=== PATIENT | male | born 1990 | race Caucasian/White ===

== ENCOUNTER 2019-07-25 15:25 | Emergency (ER) | payer OTHER ==
[~2019-07-25] VITALS: Ht 172.7 cm; Wt 81.6 kg
[2019-07-25] MEDS ORDERED: IV NORMAL SALINE 1000ML BAG 1,000 ML IV ONE (16:15)
--- NOTE | 2019-07-25 16:36 | RAD ---
Examination: PORTABLE CHEST 1V History: Syncope Comparison/Correlation: None Findings: Upright portable frontal view chest was obtained. Heart size and pulmonary vasculature are normal. Minimal retrocardiac left basilar linear atelectasis, scarring or possibly infiltrate noted. No pleural effusion suspected. No pneumothorax. Bony structures are unremarkable. Impression: Minimal retrocardiac left basilar atelectasis, scarring or possibly infiltrate. Electronically signed by: Marco Pace MD (07/25/2019 4:33 PM) [facility]
[2019-07-25] MEDS ORDERED: ACETAMINOPHEN 500 MG TABLET PO ONE (17:15)
[2019-07-25 17:16] LABS: BILIRUBIN,URINE NEGATIVE (NEG); CLARITY,URINE CLEAR; COLOR,URINE YELLOW; NITRITE,URINE NEGATIVE (NEG); PH,URINE 6.5; PROTEIN,URINE NEGATIVE (NEG-TRACE)
[2019-07-25 17:22] LABS: SQUAMOUS EPITHELIAL CELL,UR OCC /LPF
[2019-07-25 17:24] LABS: BACTERIA,URINE 0 /HPF (0-FEW)
[2019-07-25 17:29] LABS: BASO % 0 % (0-3); EOS # 0.2 x10^3/uL (0.0-0.7); EOS % 1 % (0-3); HEMATOCRIT 44.2 % (39.0-53.0); HEMOGLOBIN 14.9 g/dL (13.0-17.5); LYMPH # 1.1 x10^3/uL (1.0-4.8); LYMPH % 9 % (24-48); MEAN CORPUSCULAR HEMOGLOBIN 29 pg (25-35); MEAN CORPUSCULAR HGB CONC 34 g/dL (31-37); MEAN CORPUSCULAR VOLUME 85 fL (79-100); MONO # 1.7 x10^3/uL (0.0-1.1); MONO % 13 % (0-9); NEUT # 9.6 x10^3/uL (1.8-7.7); NEUT % 76 % (31-73); PLATELET COUNT 272 x10^3/uL (140-400); RED CELL DISTRIBUTION WIDTH 12.8 % (11.5-14.5); WHITE BLOOD COUNT 12.6 x10^3/uL (4.0-11.0)
[2019-07-25 17:34] LABS: BARBITURATES NEG (NEG); BENZODIAZEPINES NEG (NEG); CANNABINOIDS NEG (NEG); COCAINE NEG (NEG); METHADONE NEG (NEG); OPIATES NEG (NEG); PHENCYCLIDINE NEG (NEG)
[2019-07-25 17:36] LABS: AMPHETAMINE/METHAMPHETAMINE NEG (NEG)
[2019-07-25 17:41] LABS: CREATININE 1.1 mg/dL (0.7-1.3); GFR 80.3; POTASSIUM 3.9 mmol/L (3.5-5.1)
[2019-07-25 17:47] LABS: ALBUMIN/GLOBULIN RATIO 0.9 (1.0-1.7); TOTAL BILIRUBIN 0.5 mg/dL (0.2-1.0); TOTAL PROTEIN 8.5 g/dL (6.4-8.2)
[2019-07-25 17:55] LABS: CREATINE KINASE 193 U/L (39-308)
[2019-07-25] MEDS ORDERED: cefTRIAXone IV Push 1 GM VIAL. IVP ONE (18:15)
[2019-07-25 18:50] VITALS: BP 131/71
[2019-07-25] MEDS ORDERED: AMOX875T PO (18:53)
--- NOTE | 2019-07-25 18:53 | PHYS DOC ---
Past Medical History Past Medical History: No Pertinent History (CARMELO DELGADO APRN) Past Surgical History: Appendectomy (CARMELO DELGADO APRN) Alcohol Use: None Drug Use: None (CARMELO DELGADO APRN) Attending Signature I have participated in the care of this patient and I have reviewed and agree with all pertinent clinical information above including history, exam, and recommendations. (SG DURAN MD) Adult General Chief Complaint Chief Complaint: SYNCOPE HPI HPI Patient is a 28 year old male who presents with be evaluated after having a syncope episode at urgent care. Patient states he had gone to urgent care to be seen for left hip pain. He states he somehow passed out at urgent care. Patient reports his had cough and nasal congestion for 4 days. Also complaining of body aches and chills. (CARMELO DELGADO APRN) Review of Systems Review of Systems Constitutional: Denies fever or chills [] Eyes: Denies change in visual acuity, redness, or eye pain [] HENT: Reports nasal congestion, denies sore throat [] Respiratory: Reports cough, denies shortness of breath Cardiovascular: No additional information not addressed in HPI [] GI: Denies abdominal pain, nausea, vomiting, bloody stools or diarrhea [] : Denies dysuria or hematuria [] Musculoskeletal: Denies back pain or joint pain [] Integument: Denies rash or skin lesions [] Neurologic: Reports syncope episode Denies headache, focal weakness or sensory changes [] All other systems were reviewed and found to be within normal limits, except as documented in this note. (CARMELO DELGADO APRN) Current Medications Current Medications Current Medications Medications (Trade) Dose Ordered Sig/Kamran Start Time Stop Time Status Last Admin Dose Admin Acetaminophen (Tylenol) 1,000 mg 1X ONCE 07/25/19 17:15 07/25/19 17:16 DC 07/25/19 17:26 1,000 MG Ceftriaxone Sodium (Rocephin) 1 gm 1X ONCE 07/25/19 18:15 07/25/19 18:16 DC 07/25/19 18:47 1 GM Sodium Chloride 1,000 ml @ 1,000 mls/hr 1X ONCE 07/25/19 16:15 07/25/19 17:14 DC 07/25/19 17:22 1,000 MLS/HR (SG DURAN MD) Allergies Allergies Allergies Coded Allergies Type Severity Reaction Last Updated Verified No Known Drug Allergies 07/25/19 No (SG DURAN MD) Physical Exam Physical Exam Constitutional: Well developed, well nourished, no acute distress, non-toxic appearance. [] HENT: Normocephalic, atraumatic, bilateral external ears normal, oropharynx moist, no oral exudates, nose normal. [] Left TM is moderately injected. No effusion Eyes: PERRLA, EOMI, conjunctiva normal, no discharge. [] Neck: Normal range of motion, no tenderness, supple, no stridor. [] Cardiovascular:Heart rate regular rhythm, no murmur [] Lungs & Thorax: Bilateral breath sounds clear to auscultation [] Abdomen: Bowel sounds normal, soft, no tenderness, no masses, no pulsatile masses. [] Skin: Warm, dry, no erythema, no rash. [] Back: No tenderness, no CVA tenderness. [] Extremities: No tenderness, no cyanosis, no clubbing, ROM intact, no edema. [] Neurologic: Alert and oriented X 3, normal motor function, normal sensory function, no focal deficits noted. Cranial nerves II through XII intact Psychologic: Affect normal, judgement normal, mood normal. [] (CARMELO DELGADO APRN) Current Patient Data Vital Signs Vital Signs Date Time Temp Pulse Resp B/P (MAP) Pulse Ox O2 Delivery O2 Flow Rate FiO2 07/25/19 18:50 94 131/71 (91) 96 Room Air 07/25/19 16:48 100.5 16 100.5 (SG DURAN MD) Lab Values Laboratory Tests Test 07/25/19 17:09 07/25/19 17:15 Urine Collection Type Unknown Urine Color Yellow Urine Clarity Clear Urine pH 6.5 Urine Specific Raymond >=1.030 Urine Protein Negative mg/dL (NEG-TRACE) Urine Glucose (UA) Negative mg/dL (NEG) Urine Ketones (Stick) Negative mg/dL (NEG) Urine Blood Negative (NEG) Urine Nitrite Negative (NEG) Urine Bilirubin Negative (NEG) Urine Urobilinogen Dipstick 1.0 mg/dL (0.2 mg/dL) Urine Leukocyte Esterase Negative (NEG) Urine RBC 1-2 /HPF (0-2) Urine WBC 1-4 /HPF (0-4) Urine Squamous Epithelial Cells Occ /LPF Urine Bacteria 0 /HPF (0-FEW) Urine Mucus Marked /LPF Urine Opiates Screen Neg (NEG) Urine Methadone Screen Neg (NEG) Urine Barbiturates Neg (NEG) Urine Phencyclidine Screen Neg (NEG) Urine Amphetamine/Methamphetamine Neg (NEG) Urine Benzodiazepines Screen Neg (NEG) Urine Cocaine Screen Neg (NEG) Urine Cannabinoids Screen Neg (NEG) Urine Ethyl Alcohol Neg (NEG) White Blood Count 12.6 x10^3/uL (4.0-11.0) H Red Blood Count 5.20 x10^6/uL (4.30-5.70) Hemoglobin 14.9 g/dL (13.0-17.5) Hematocrit 44.2 % (39.0-53.0) Mean Corpuscular Volume 85 fL (79-100) Mean Corpuscular Hemoglobin 29 pg (25-35) Mean Corpuscular Hemoglobin Concent 34 g/dL (31-37) Red Cell Distribution Width 12.8 % (11.5-14.5) Platelet Count 272 x10^3/uL (140-400) Neutrophils (%) (Auto) 76 % (31-73) H Lymphocytes (%) (Auto) 9 % (24-48) L Monocytes (%) (Auto) 13 % (0-9) H Eosinophils (%) (Auto) 1 % (0-3) Basophils (%) (Auto) 0 % (0-3) Neutrophils # (Auto) 9.6 x10^3/uL (1.8-7.7) H Lymphocytes # (Auto) 1.1 x10^3/uL (1.0-4.8) Monocytes # (Auto) 1.7 x10^3/uL (0.0-1.1) H Eosinophils # (Auto) 0.2 x10^3/uL (0.0-0.7) Basophils # (Auto) 0.0 x10^3/uL (0.0-0.2) Sodium Level 140 mmol/L (136-145) Potassium Level 3.9 mmol/L (3.5-5.1) Chloride Level 103 mmol/L (98-107) Carbon Dioxide Level 30 mmol/L (21-32) Anion Gap 7 (6-14) Blood Urea Nitrogen 13 mg/dL (8-26) Creatinine 1.1 mg/dL (0.7-1.3) Estimated GFR (Cockcroft-Gault) 80.3 BUN/Creatinine Ratio 12 (6-20) Glucose Level 95 mg/dL (70-99) Calcium Level 9.0 mg/dL (8.5-10.1) Magnesium Level 2.0 mg/dL (1.8-2.4) Total Bilirubin 0.5 mg/dL (0.2-1.0) Aspartate Amino Transferase (AST) 28 U/L (15-37) Alanine Aminotransferase (ALT) 40 U/L (16-63) Alkaline Phosphatase 92 U/L (46-116) Creatine Kinase 193 U/L (39-308) Creatine Kinase MB (Mass) < 0.5 ng/mL (0.0-3.6) Creatine Kinase MB Relative Index 0.3 % (0-4) Troponin I Quantitative < 0.017 ng/mL (0.000-0.055) IG-Pil-O-Type Natriuretic Peptide 39 pg/mL (0-124) Total Protein 8.5 g/dL (6.4-8.2) H Albumin 4.0 g/dL (3.4-5.0) Albumin/Globulin Ratio 0.9 (1.0-1.7) L Laboratory Tests 07/25/19 17:15 Laboratory Tests 07/25/19 17:15 (SG DURAN MD) EKG EKG [address] Frankel sinus rhythm HR 85 no STEMI[] (CARMELO DELGADO APRN) Radiology/Procedures Radiology/Procedures []PROCEDURE: PORTABLE CHEST 1V Examination: PORTABLE CHEST 1V History: Syncope Comparison/Correlation: None Findings: Upright portable frontal view chest was obtained. Heart size and pulmonary vasculature are normal. Minimal retrocardiac left basilar linear atelectasis, scarring or possibly infiltrate noted. No pleural effusion suspected. No pneumothorax. Bony structures are unremarkable. Impression: Minimal retrocardiac left basilar atelectasis, scarring or possibly infiltrate. Electronically signed by: Marco Love MD (07/25/2019 4:33 PM) [facility] DICTATED and SIGNED BY: MARCO LOVE MD DATE: 07/25/19 163 (CARMELO DELGADO APRN) Course & Med Decision Making Course & Med Decision Making Pertinent Labs and Imaging studies reviewed. (See chart for details) This is a 28-year-old male patient presented to the ED today to be evaluated after having a syncope episode at urgent care where he was being evaluated for ear pain. Patient has also had a cough and nasal congestion for 4 days. Patient is febrile in the ED with a temperature of 100.5. CBC with a WBC of 12.6, CMP would not acute findings. Chest x-ray noted for possible pneumonia. Patient was given Rocephin in the ED. Patient was discharged on amoxicillin. Tylenol/Motrin for pain or fever. Follow- up with primary care doctor in 1-2 weeks. (CARMELO DELGADO APRN) Dragon Disclaimer Dragon Disclaimer This electronic medical record was generated, in whole or in part, using a voice recognition dictation system. (CARMELO DELGADO APRN) Departure Departure Impression: Primary Impression: Left otitis media Additional Impressions: Fever Left lower lobe pulmonary infiltrate Syncope Disposition: HOME, SELF-CARE Condition: STABLE Referrals: CHANDLER COLIN DO (PCP) Follow-up in one week Patient Instructions: Fever, Adult, [id number], Otitis Media, Adult, [id number]-[id number], Pneumonia, Adult, [id number] Additional Instructions: You were evaluated in the emergency room after having a syncope episode. You have an ear infection and possible pneumonia. You also have a fever. Please take Tylenol/Motrin for pain or fever. Complete the prescribed antibiotics. Follow-up with your doctor next week. Rest and push fluids. Scripts Amoxicillin (AMOXICILLIN) 875 Mg Tablet 1 TAB PO BID, #20 TAB Prov: CARMELO DELGADO APRN 07/25/19 Problem Qualifiers Primary Impression: Left otitis media Otitis media type: other nonsuppurative Chronicity: acute Recurrence: non-recurrent Qualified Codes: H65.192 - Other acute nonsuppurative otitis media, left ear Additional Impressions: Fever Fever type: unspecified Qualified Codes: R50.9 - Fever, unspecified Syncope Syncope type: unspecified Qualified Codes: R55 - Syncope and collapse CARMELO DELGADO APRN Jul 25, 2019 18:53 SG DURAN MD Jul 26, 2019 02:31
--- NOTE | 2019-07-27 12:47 | EKG ---
[facility] [address] [place] [address] Test Date: 2019-07-25 Test Time: 16:31:52 Pat Name: JOSE SANTOS Department: Room: Gender: M House Coordinator: : 1990 Requested By: CARMELO DELGADO Order Number: [id number] Reading MD: Measurements Intervals [place]unction Rate: 85 P: 34 MN: 152 QRS: 47 QRSD: 88 T: 15 QT: 326 QTc: 388 Interpretive Statements SINUS RHYTHM QRS(T) CONTOUR ABNORMALITY CONSIDER ANTEROSEPTAL MYOCARDIAL DAMAGE POSSIBLY ABNORMAL ECG RI6.01 No previous ECG available for comparison
== END 2019-07-25 19:02 | disposition home or self-care (01) ==
LOC: ER 15:25
DX: H65.192 Other acute nonsuppurative otitis media, left ear (principal); R55 Syncope and collapse; M25.552 Pain in left hip; R50.9 Fever, unspecified; R91.8 Other nonspecific abnormal finding of lung field; Z90.89 Acquired absence of other organs; Z79.899 Other long term (current) drug therapy
CPT/HCPCS: 36415; 71045; 80053; 80307; 81001; 82553; 83735; 83880; 84484; 85025; 93005; 96361; 96374; 99285; J0696; J7030